=== PATIENT | female | born 2000 | race American Indian/Alaskan Native ===

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

== ENCOUNTER 2021-02-01 16:24 | Emergency (ER) | payer MEDICAID ==
[2021-02-01] MEDS ORDERED: PROPARACAINE 0.5% OPHTH DROPS 15 ML EACHEYE STA (16:46)
[2021-02-01] MEDS ORDERED: IBUPROFEN 600 MG TABLET PO STA (18:29)
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
[2021-02-01 18:35] VITALS: BP 127/99
== END 2021-02-01 18:36 | disposition home or self-care (01) ==
LOC: ED 16:24
DX: T15.92XA Foreign body on external eye, part unspecified, left eye, initial encounter (principal); H11.422 Conjunctival edema, left eye; X58.XXXA Exposure to other specified factors, initial encounter; Y93.89 Activity, other specified; F17.200 Nicotine dependence, unspecified, uncomplicated
CPT/HCPCS: 99282; 99284; A9270; J3490